=== PATIENT | female | born 1995 | race Native Hawaiian/Other Pacific Islander ===

== ENCOUNTER 2016-11-20 07:04 | Outpatient (CLI) | payer OTHER | END 2016-11-20 07:16 | disposition short-term general hospital (02) | LOC: AMB 07:04 | DX: R06.02 Shortness of breath (principal); L50.8 Other urticaria; F41.8 Other specified anxiety disorders | CPT/HCPCS: A0425; A0429 ==

== ENCOUNTER 2016-11-20 07:20 | Emergency (ER) | payer OTHER ==
[~2016-11-20] VITALS: Ht 165.1 cm; Wt 44.9 kg
[2016-11-20 07:26] VITALS: BP 100/62; TEMP 97.8
== END 2016-11-20 08:18 | disposition home or self-care (01) ==
LOC: ED 07:20
DX: L50.8 Other urticaria (principal)
CPT/HCPCS: 36415; 96374; 96375; 99284; J1200; J2930

== ENCOUNTER 2018-12-09 01:55 | Emergency (ER) | payer OTHER ==
[~2018-12-09] VITALS: Ht 165.1 cm; Wt 45.4 kg
[2018-12-09 02:10] VITALS: BP 117/75; TEMP 98.1
[2018-12-09 03:08] LABS: PLATELET COUNT 261 K/uL (152-353)
[2018-12-09 03:19] LABS: POTASSIUM 4.3 mmol/L (3.6-5.2)
== END 2018-12-09 03:56 | disposition home or self-care (01) ==
LOC: ED 01:55
PROVIDERS: Emergency Medicine
DX: E86.0 Dehydration (principal)
CPT/HCPCS: 36415; 80053; 81000; 81025; 85027; 96360; 96374; 99284; J2405

== ENCOUNTER 2018-12-10 12:49 | Emergency (ER) | payer OTHER ==
[~2018-12-10] VITALS: Ht 165.1 cm; Wt 45.4 kg
[2018-12-10 12:55] VITALS: TEMP 98.1
[2018-12-10 13:34] LABS: PLATELET COUNT 247 K/uL (152-353)
[2018-12-10 13:43] LABS: POTASSIUM 3.4 mmol/L (3.6-5.2)
[2018-12-10 14:42] VITALS: BP 100/60
== END 2018-12-10 14:42 | disposition home or self-care (01) ==
LOC: ED 12:49
PROVIDERS: Emergency Medicine
DX: K52.9 Noninfective gastroenteritis and colitis, unspecified (principal)
CPT/HCPCS: 80053; 85027; 96360; 96375; 99284; J2550